=== PATIENT | female | born 1980 | race Caucasian/White ===

== ENCOUNTER 2016-04-27 20:49 | Emergency (ER) | payer OTHER ==
[~2016-04-27] VITALS: Ht 165.1 cm; Wt 73.0 kg
[2016-04-27 20:53] VITALS: BP 170/126; PULSE 80; RESP 18; TEMP 97.6; O2SAT 100
[2016-04-27 21:30] VITALS: BP 190/106; PULSE 75; RESP 18; O2SAT 99
[2016-04-27] MEDS ORDERED: MORPHINE SULFATE 4 MG/ML INJ IV PUSH ONE (21:30)
[2016-04-27] MEDS ORDERED: SODIUM CHLOR 0.9% 1000 ML INJ 1,000 ML IV SCH (21:30)
[2016-04-27] MEDS ORDERED: SODIUM CHLORIDE 0.9% FLUSH 5 ML FLUSH IVF PRN (21:30)
[2016-04-27] MEDS ORDERED: METOCLOPRAMIDE HCL 10 MG/2 ML VIAL IV PUSH ONE (21:30)
[2016-04-27] MEDS ORDERED: LEVO100T5 PO (21:31)
[2016-04-27] MEDS ORDERED: ALPR1TAB3 PO (21:34)
[2016-04-27] MEDS ORDERED: LISI-515 PO (21:34)
[2016-04-27 21:59] LABS: CHLORIDE 102 MEQ/L (98-107); POTASSIUM 3.6 MEQ/L (3.5-5.1); SODIUM (NA) 137 MEQ/L (136-145)
[2016-04-27 22:03] LABS: ANION GAP 4 MEQ/L (5-15); BICARBONATE 31.1 MEQ/L (21.0-32.0)
[2016-04-27 22:04] LABS: BLOOD UREA NITROGEN 9 MG/DL (7-18)
[2016-04-27 22:05] LABS: APTT (PATIENT) 30.1 SEC (24.3-30.1); PROTHROMBIN TIME - PATIENT 11.3 SEC (9.8-11.6)
[2016-04-27 22:06] LABS: ALT (GPT) 26 U/L (10-53); AST (GOT) 18 U/L (15-37)
[2016-04-27 22:07] LABS: GLOMERULAR FILTRATION RATE 70 ML/MIN (>89)
[2016-04-27 22:08] LABS: TOTAL BILIRUBIN ADULT 0.4 MG/DL (0.2-1.0)
[2016-04-27 22:09] LABS: ALKALINE PHOSPHATASE 82 U/L (45-117)
[2016-04-27 22:10] LABS: BLOOD, URINE NEG (NEG); GLUCOSE,URINE NEG (NEG); KETONE, URINE NEG (NEG); NITRITE,URINE NEG (NEG)
[2016-04-27 22:11] LABS: BETA HCG QUANT LESS THAN 1 MIU/ML (0-5)
[2016-04-27 22:14] LABS: METHOD OF COLLECTION CLEAN CATCH; URINE COLOR YELLOW (YELLW/STRAW)
[2016-04-27 22:15] LABS: BACTERIA, URINE FEW /hpf; COMMENT (UR) CULT NOT INDICATED; CULTURE IF INDICATED CULT NOT INDICATED; RBC, URINE 0-3 /hpf (0-3); SQUAMOUS EPITHELIAL CELL URINE 0-5 /hpf (0-5); WBC, URINE 0-2 /hpf (0-5)
--- NOTE | 2016-04-27 22:15 | PD ---
HPI Chief Complaint: Headache Time Seen by Provider: 21:15 Travel History International Travel<30 days: No Contact w/Intl Traveler<30days: No Traveled to known affect area: No History of Present Illness HPI Interstitial female here for evaluation of head and neck pain. The patient states that she tripped and fell 4 days ago landing on the right side of her head. No LOC. Since that time she has been having worsening head and neck pain. She states pain is severe, constant, associated with photophobia, pressure-like. No fevers. No other injuries. No paresthesias or motor deficits. No IVDU. PFSH Past Medical History Anxiety: Yes Endocrine: Yes (hyperactice thyroid, pt had radiation, thyroid storm) Hypertension: Yes (does not take her meds "makes me sleepy") Radiation Therapy: Yes (thyroid) Tetanus Vaccination: < 5 Years Influenza Vaccination: Yes ?: Not LMP: 04/16 Tubal Ligation: Yes Past Surgical History Section: Yes (x3) Cholecystectomy: Yes Social History Alcohol Use: No Tobacco Use: Yes (<5 cigs a day) Allergies-Medications (Allergen,Severity, Reaction): Coded Allergies: No Known Allergies (Unverified , 04/27/16) Reported Meds & Prescriptions Reported Meds & Active Scripts Active Reported Alprazolam 1 Mg Tab 1 Mg PO Q4HR PRN Lisinopril 20 Mg Tab 20 Mg PO DAILY Levothyroxine (Levothyroxine Sodium) 100 Mcg Tab 100 Mcg PO DAILY Review of Systems Except as stated in HPI: all other systems reviewed are Neg Physical Exam Narrative GENERAL: Well-developed, well-nourished, comfortable, no acute distress, acute size sheltered from light. SKIN: Warm and dry. No rash. No lacerations, abrasions, or ecchymosis. HEAD: Atraumatic. Normocephalic. EYES: Pupils equal, round, 4 mm, reactive to light. EOMI. No scleral icterus. No injection or drainage. ENT: No nasal bleeding or discharge. Mucous membranes pink and moist. NECK: Trachea midline. No JVD. No nuchal rigidity. There is right her spinous tenderness. No midline vertebral step-off or tenderness. CARDIOVASCULAR: Regular rate and rhythm. No murmur appreciated. RESPIRATORY: No accessory muscle use. Clear to auscultation. Breath sounds equal bilaterally. GASTROINTESTINAL: Abdomen soft, non-tender, nondistended. MUSCULOSKELETAL: No obvious deformities. No clubbing. No cyanosis. No edema. NEUROLOGICAL: Awake and alert. No obvious cranial nerve deficits. Motor grossly within normal limits. Normal speech. No focal deficits. PSYCHIATRIC: Appropriate mood and affect; insight and judgment normal. Data Data Last Documented VS Vital Signs Date Time Temp Pulse Resp B/P Pulse Ox O2 Delivery O2 Flow Rate FiO2 04/27/16 21:30 75 18 190/106 99 Room Air 04/27/16 20:53 97.6 Orders Beta Hcg (Quant/Titer) (04/27/16 21:30) Complete Blood Count With Diff (04/27/16 21:30) Comprehensive Metabolic Panel (04/27/16 21:30) Prothrombin Time / Inr (Pt) (04/27/16 21:30) Act Partial Throm Time (Ptt) (04/27/16 21:30) Urinalysis - C+S If Indicated (04/27/16 21:30) Iv Access Insert/Monitor (04/27/16 21:30) Ecg Monitoring (04/27/16 21:30) Oximetry (04/27/16 21:30) Morphine Inj (Morphine Inj) (04/27/16 21:30) Sodium Chlor 0.9% 1000 Ml Inj (Ns 1000 M (04/27/16 21:30) Sodium Chloride 0.9% Flush (Ns Flush) (04/27/16 21:30) Metoclopramide Inj (Reglan Inj) (04/27/16 21:30) Ct Brain W/O Iv Contrast(Rout) (04/27/16 ) Ct Cerv Spine W/O Contrast (04/27/16 ) Drug Screen, Random Urine (04/27/16 21:30) Labs Laboratory Tests Test 04/27/16 04/27/16 21:30 22:00 White Blood Count 5.8 TH/MM3 Red Blood Count 4.61 MIL/MM3 Hemoglobin 13.8 GM/DL Hematocrit 40.5 % Mean Corpuscular Volume 87.8 FL Mean Corpuscular Hemoglobin 30.0 PG Mean Corpuscular Hemoglobin 34.1 % Concent Red Cell Distribution Width 12.9 % Platelet Count 285 TH/MM3 Mean Platelet Volume 8.4 FL Neutrophils (%) (Auto) 52.4 % Lymphocytes (%) (Auto) 37.2 % Monocytes (%) (Auto) 8.0 % Eosinophils (%) (Auto) 1.1 % Basophils (%) (Auto) 1.3 % Neutrophils # (Auto) 3.0 TH/MM3 Lymphocytes # (Auto) 2.1 TH/MM3 Monocytes # (Auto) 0.5 TH/MM3 Eosinophils # (Auto) 0.1 TH/MM3 Basophils # (Auto) 0.1 TH/MM3 CBC Comment DIFF FINAL Differential Comment Prothrombin Time 11.3 SEC Prothromb Time International 1.0 RATIO Ratio Activated Partial 30.1 SEC Thromboplast Time Sodium Level 137 MEQ/L Potassium Level 3.6 MEQ/L Chloride Level 102 MEQ/L Carbon Dioxide Level 31.1 MEQ/L Anion Gap 4 MEQ/L Blood Urea Nitrogen 9 MG/DL Creatinine 0.91 MG/DL Estimat Glomerular Filtration 70 ML/MIN Rate Random Glucose 88 MG/DL Calcium Level 8.2 MG/DL Total Bilirubin 0.4 MG/DL Aspartate Amino Transf 18 U/L (AST/SGOT) Alanine Aminotransferase 26 U/L (ALT/SGPT) Alkaline Phosphatase 82 U/L Total Protein 7.9 GM/DL Albumin 3.8 GM/DL Human Chorionic Gonadotropin, LESS THAN 1 Quant MIU/ML Urine Collection Type CLEAN CATCH Urine Color YELLOW Urine Turbidity CLEAR Urine pH 7.0 Urine Specific [place] 1.017 Urine Protein NEG mg/dL Urine Glucose (UA) NEG mg/dL Urine Ketones NEG mg/dL Urine Occult Blood NEG Urine Nitrite NEG Urine Bilirubin NEG Urine Leukocyte Esterase NEG Urine RBC 0-3 /hpf Urine WBC 0-2 /hpf Urine Squamous Epithelial 0-5 /hpf Cells Urine Amorphous Sediment FEW Urine Bacteria FEW /hpf Microscopic Urinalysis Comment CULT NOT INDICATED Urine Collection Time 2200 Urine Opiates Screen NEG Urine Barbiturates Screen NEG Urine Amphetamines Screen POS Urine Benzodiazepines Screen NEG Urine Cocaine Screen NEG Urine Cannabinoids Screen NEG MDM Medical Decision Making Medical Screen Exam Complete: Yes Emergency Medical Condition: Yes Differential Diagnosis Intracranial trauma, tension headache, cluster headache, migraine headache, SAH , meningitis/encephalitis unlikely Narrative Course Vital signs reviewed showed the patient is slightly hypertensive. She did not take her antihypertensive medications today, otherwise her vital signs are within normal limits. She is afebrile. CBC is unremarkable. CMP is unremarkable. Beta hCG is negative. UA is not suggestive of UTI. Urine drug screen is positive for amphetamines. CT head read as normal examination. CT cervical spine: CONCLUSION: 1. No acute findings. Mild degenerative disc disease. No canal stenosis Patient was given IV fluids and pain medication and is sleeping comfortably. She is afebrile. There is no nuchal rigidity on exam. She was made aware of all findings and states she is feeling a lot better. When asked about the amphetamines in her urine, the patient admits to taking Adderall orally. She denies injecting any illicit drugs. I do not believe she has meningitis or encephalitis. She is requesting a note for work for [employer] She is stable for discharge home with outpatient follow-up with a primary care physician this week. She was informed on when to return to the emergency department. She verbalizes understanding and agreement with plan. Diagnosis Primary Impression: Cephalgia Qualified Code: R51 - Nonintractable headache, unspecified chronicity pattern , unspecified headache type Referrals: Primary Care Physician 3 days Additional Instructions: Follow-up with a primary care physician this week. Return to the emergency department for worsening symptoms or any other concerns. Disposition: DISCHARGE HOME Condition: Stable Sacha Rodríguez MD Apr 27, 2016 22:15
[2016-04-27 22:23] LABS: BASOPHIL # 0.1 TH/MM3 (0-0.2); BASOPHIL % 1.3 % (0.0-2.0); EOSINOPHIL # 0.1 TH/MM3 (0-0.4); EOSINOPHIL % 1.1 % (0.0-4.0); HEMATOCRIT 40.5 % (35.0-46.0); HEMO FLAGS DIFF FINAL; LYMPH % 37.2 % (9.0-44.0); LYMPHOCYTE # 2.1 TH/MM3 (1.0-4.8); MEAN CELL VOLUME 87.8 FL (80.0-100.0); MEAN CORPUSCULAR HGB CONC 34.1 % (32.0-36.0); NEUT % 52.4 % (16.0-70.0); PLATELET COUNT 285 TH/MM3 (150-450); RED BLOOD COUNT 4.61 MIL/MM3 (4.00-5.30); RED CELL DISTRIBUTION WIDTH 12.9 % (11.6-17.2); WHITE BLOOD COUNT 5.8 TH/MM3 (4.0-11.0)
[2016-04-27 22:25] LABS: AMPHETAMINE, URINE POS (NEG)
[2016-04-27 22:26] LABS: BARBITURATES, URINE NEG (NEG)
[2016-04-27 22:32] LABS: COCAINE, URINE NEG (NEG)
[2016-04-27 22:35] VITALS: BP 151/93; PULSE 72; RESP 17; O2SAT 98
--- NOTE | 2016-04-27 22:37 | RADHPO ---
EXAM DATE/TIME: 04/27/2016 22:13 [facility] COMPARISON: No previous studies available for comparison. INDICATIONS : Cephalgia for four days. RADIATION DOSE: 64.47 CTDIvol (mGy) MEDICAL HISTORY : None SURGICAL HISTORY : None. ENCOUNTER: Initial ACUITY: 1 day PAIN SCALE: 10/10 LOCATION: cranial TECHNIQUE: Multiple contiguous axial images were obtained of the head. Using automated exposure control and adj ustment of the mA and/or kV according to patient size, radiation dose was kept as low as reasonably a chievable to obtain optimal diagnostic quality images. FINDINGS: CEREBRUM: The ventricles are normal for age. No evidence of midline shift, mass lesion, hemorrhage or acute in farction. No extra-axial fluid collections are seen. POSTERIOR FOSSA: The cerebellum and brainstem are intact. The 4th ventricle is midline. The cerebellopontine angle i s unremarkable. EXTRACRANIAL: The visualized portion of the orbits is intact. SKULL: The calvaria is intact. No evidence of skull fracture. CONCLUSION: Normal examination. Jeromy Cuadra MD on April 27, 2016 at 22:34 Board Certified Radiologist. This report was verified electronically.
--- NOTE | 2016-04-27 22:40 | RADHPO ---
EXAM DATE/TIME: 04/27/2016 22:13 [facility] COMPARISON: No previous studies available for comparison. INDICATIONS : Trauma, fall that bent neck sideways. Neck pain. RADIATION DOSE: 25.95 CTDIvol (mGy) MEDICAL HISTORY : None SURGICAL HISTORY : None. ENCOUNTER: Initial ACUITY: 1 day PAIN SCALE: 10/10 LOCATION: neck TECHNIQUE: Volumetric scanning of the cervical spine was performed. Multiplanar reconstructions in the sagittal, coronal and oblique axial planes were performed. Using automated exposure control and adjustment o f the mA and/or kV according to patient size, radiation dose was kept as low as reasonably achievable to obtain optimal diagnostic quality images. FINDINGS: VERTEBRAE: Normal vertebral body height. ALIGNMENT: No evidence of subluxation. C2-C3: The bony spinal canal is normal in size. No evidence of disc bulge or herniation. The neural forami na are bilaterally patent. C3-C4: The bony spinal canal is normal in size. No evidence of disc bulge or herniation. The neural forami na are bilaterally patent. C4-C5: The bony spinal canal is normal in size. No evidence of disc bulge or herniation. The neural forami na are bilaterally patent. C5-C6: The bony spinal canal is normal in size. No evidence of disc bulge or herniation. The neural forami na are bilaterally patent. C6-C7: The bony spinal canal is normal in size. No evidence of disc bulge or herniation. The neural forami na are bilaterally patent. C7-T1: The bony spinal canal is normal in size. No evidence of disc bulge or herniation. The neural forami na are bilaterally patent. CONCLUSION: 1. No acute findings. Mild degenerative disc disease. No canal stenosis. Jeromy Cuadra MD on April 27, 2016 at 22:36 Board Certified Radiologist. This report was verified electronically.
== END 2016-04-27 23:20 | disposition home or self-care (01) ==
LOC: PHED 20:49
DX: I10 Essential (primary) hypertension (principal); F17.210 Nicotine dependence, cigarettes, uncomplicated; R51 Headache; W01.0XXA Fall on same level from slipping, tripping and stumbling without subsequent striking against object, initial encounter; Y93.89 Activity, other specified; Y99.9 Unspecified external cause status
CPT/HCPCS: 70450; 72125; 80053; 80307; 81001; 84702; 85025; 85610; 85730; 96361; 96374; 96375; 99284; J2270; J2765; J7030